=== PATIENT | female | born 1990 | race Caucasian/White ===

== ENCOUNTER 2020-12-12 03:03 | Inpatient (IN) | payer MEDICAID ==
[~2020-12-12] VITALS: Ht 154.9 cm; Wt 92.7 kg
[2020-12-12] MEDS ORDERED: LABETALOL 5MG/ML, 20ML IVPush ONE ×2 (03:30)
[2020-12-12] MEDS ORDERED: LABETALOL 20 MG/4 ML IVPush ONE (03:30)
[2020-12-12] MEDS ORDERED: hydrALAzine 20 MG/ML, 1ML IVPush ONE (03:30)
[2020-12-12] MEDS ORDERED: MAGNESIUM SULF. PMX 20GM/500ML 500 ML IV SCH (03:30)
[2020-12-12 03:34] LABS: MICROSCOPIC AUTO
[2020-12-12 03:38] LABS: AMPHETAMINE SCREEN, URINE Negative (Negative); BARBITURATE SCREEN, URINE Negative (Negative); BENZODIAZEPINE SCREEN, URINE Negative (Negative); CANNABINOID SCREEN, URINE Negative (Negative); COCAINE SCREEN, URINE Negative (Negative); METHADONE SCREEN, URINE Negative (Negative); OPIATE SCREEN, URINE Negative (Negative)
[2020-12-12 03:40] LABS: CREATININE,URINE RANDOM 15.2 mg/dL
[2020-12-12 03:47] LABS: MEAN CORPUSCULAR HEMOGLOBIN 32.8 pg (27.0-34.8); MEAN PLATELET VOLUME 9.4 fL (7.4-10.4); PLATELET COUNT 173 x10^3/uL (130-400); RED BLOOD COUNT 3.32 x10^6/uL (3.82-5.3); RED CELL DISTRIBUTION WIDTH 12.5 % (9.6-15.2)
[2020-12-12 03:50] LABS: ALANINE AMINOTRANSFERASE 32 U/L (12-78); ALBUMIN 2.6 g/dL (3.4-5.0); ANION GAP 10 mmol/L (5-15); CALCIUM 8.6 mg/dL (8.5-10.1); CHLORIDE 104 mmol/L (98-107); CREATININE 0.73 mg/dL (0.55-1.02)
[2020-12-12 03:52] LABS: ALKALINE PHOSPHATASE 89 U/L (45-117); BILIRUBIN,TOTAL 0.6 mg/dL (0.2-1.0); TOTAL PROTEIN 6.5 g/dL (6.4-8.2)
[2020-12-12] MEDS ORDERED: SODIUM CITRATE/CITRIC ACID 15 ML UDC ONE (04:08)
[2020-12-12] MEDS ORDERED: METOCLOPRAMIDE 5 MG/ML, 2ML ONE (04:08)
[2020-12-12 04:13] LABS: BAND#(MANUAL) 1.98 x10^3/uL; BANDS%(MANUAL) 13 % (0-7); LYMPH#(MANUAL) 1.67 x10^3/uL (1-3.4); LYMPHS% (MANUAL) 11 % (22-44); METAMYELOCYTES% (MANUAL) 2 % (0-1); MONOS% (MANUAL) 2 % (2-9); SEG#(MANUAL) 10.64 x10^3/uL (1.8-6.8); SEGS% (MANUAL) 70 % (42-75)
[2020-12-12 04:14] LABS: <PLATELET ESTIMATE> ADEQUATE; <RBC MORPHOLOGY> NORMAL; LARGE PLATELETS 1+; MYELOCYTES% (MANUAL) 2 % (0-0)
[2020-12-12 04:15] LABS: PMNS WITH VACUOLES 1+; TOXIC GRAN 1+
[2020-12-12] MEDS: LACTATED RINGERS 1,000 ML IV PRN (04:32)
[2020-12-12] MEDS ORDERED: LABETALOL 100 MG TABLET ONE (06:55)
[2020-12-12] MEDS: LABETALOL 100 MG TABLET PO SCH ×3 (06:58→21:09)
[2020-12-12] MEDS ORDERED: ACETAMINOPHEN 325 MG TABLET ONE (09:38)
[2020-12-12] MEDS: ACETAMINOPHEN 325 MG TABLET PO PRN ×2 (09:40→19:45)
[2020-12-12] MEDS: PRENATAL VIT/IRON/FA 1 EACH TABLET PO SCH (12:30)
[2020-12-12] MEDS: DOCUSATE 100 MG CAPSULE PO PRN ×2 (12:30→21:09)
[2020-12-12] MEDS ORDERED: MAGNESIUM SULF. PMX 20GM/500ML 500 ML IV ONE (17:29)
[2020-12-12] MEDS: MAGNESIUM SULF. PMX 20GM/500ML 500 ML IV SCH (22:14)
[2020-12-13] MEDS ORDERED: BETAMETHASONE 6 MG/ML, 5ML IM ONE (01:00)
[2020-12-13] MEDS: ACETAMINOPHEN 325 MG TABLET PO PRN ×3 (01:29→18:40)
[2020-12-13] MEDS: LACTATED RINGERS 1,000 ML IV PRN (03:37)
[2020-12-13] MEDS: LABETALOL 100 MG TABLET PO SCH ×3 (07:29→21:37)
[2020-12-13] MEDS ORDERED: INSULIN NPH HUMAN 100 UNIT/ML, 3ML VIAL SQ-INSULIN ONE (07:30)
[2020-12-13] MEDS ORDERED: INSULIN LISPRO 100 UNITS/ML, PEN SQ-INSULIN ONE (07:30)
[2020-12-13 09:49] LABS: BASOPHILS % (AUTO) 0 % (0-1); EOSINOPHILS % (AUTO) 0 % (1-7); LYMPHOCYTES % (AUTO) 10 % (22-44); MEAN CORPUSCULAR HEMOGLOBIN 33.8 pg (27.0-34.8); MEAN CORPUSCULAR HGB CONC 34.4 g/dL (32.4-35.8); MEAN PLATELET VOLUME 9.5 fL (7.4-10.4); MONOCYTES % (AUTO) 2 % (2-9); NEUTROPHILS % (AUTO) 89 % (42-75); PLATELET COUNT 151 x10^3/uL (130-400); RED BLOOD COUNT 2.89 x10^6/uL (3.82-5.3); RED CELL DISTRIBUTION WIDTH 13.2 % (9.6-15.2)
[2020-12-13 09:51] LABS: ALBUMIN 2.5 g/dL (3.4-5.0); ANION GAP 10 mmol/L (5-15); CALCIUM 6.9 mg/dL (8.5-10.1); CHLORIDE 103 mmol/L (98-107)
[2020-12-13 09:54] LABS: ALANINE AMINOTRANSFERASE 45 U/L (12-78); ALKALINE PHOSPHATASE 79 U/L (45-117); BILIRUBIN,TOTAL 0.7 mg/dL (0.2-1.0); CREATININE 1.12 mg/dL (0.55-1.02)
[2020-12-13] MEDS: PRENATAL VIT/IRON/FA 1 EACH TABLET PO SCH (10:03)
[2020-12-13] MEDS: DOCUSATE 100 MG CAPSULE PO PRN (10:03)
[2020-12-13 15:32] LABS: MEAN CORPUSCULAR HEMOGLOBIN 32.7 pg (27.0-34.8); MEAN PLATELET VOLUME 9.8 fL (7.4-10.4); PLATELET COUNT 161 x10^3/uL (130-400); RED BLOOD COUNT 3.11 x10^6/uL (3.82-5.3); RED CELL DISTRIBUTION WIDTH 13.5 % (9.6-15.2)
[2020-12-13 15:45] LABS: ALANINE AMINOTRANSFERASE 52 U/L (12-78); ALBUMIN 2.7 g/dL (3.4-5.0); ANION GAP 8 mmol/L (5-15); CHLORIDE 101 mmol/L (98-107); CREATININE 1.01 mg/dL (0.55-1.02)
[2020-12-13 15:47] LABS: ALKALINE PHOSPHATASE 82 U/L (45-117); BILIRUBIN,TOTAL 0.5 mg/dL (0.2-1.0); TOTAL PROTEIN 6.5 g/dL (6.4-8.2)
[2020-12-13 16:36] LABS: <PLATELET ESTIMATE> ADEQUATE; <RBC MORPHOLOGY> NORMAL; BANDS%(MANUAL) 10 % (0-7); LYMPH#(MANUAL) 1.21 x10^3/uL (1-3.4); LYMPHS% (MANUAL) 11 % (22-44); MONOS#(MANUAL) 0.55 x10^3/uL (0.3-2.7); MONOS% (MANUAL) 5 % (2-9); MYELOCYTES# (MANUAL) 0.11 x10^3/uL (0-0); MYELOCYTES% (MANUAL) 1 % (0-0); SEG#(MANUAL) 8.03 x10^3/uL (1.8-6.8); SEGS% (MANUAL) 73 % (42-75)
[2020-12-13 16:37] LABS: LARGE PLATELETS 1+
[2020-12-13] MEDS: MAGNESIUM SULF. PMX 20GM/500ML 500 ML IV SCH (18:01)
[2020-12-13] MEDS ORDERED: ONDANSETRON 2MG/ML, 2ML ONE (18:39)
[2020-12-13] MEDS ORDERED: ONDANSETRON 2MG/ML, 2ML IVPush PRN (19:00)
[2020-12-13 20:55] LABS: ALANINE AMINOTRANSFERASE 56 U/L (12-78); ALBUMIN 2.6 g/dL (3.4-5.0); ANION GAP 9 mmol/L (5-15); CHLORIDE 104 mmol/L (98-107); CREATININE 0.88 mg/dL (0.55-1.02)
[2020-12-13 20:58] LABS: ALKALINE PHOSPHATASE 80 U/L (45-117); BILIRUBIN,TOTAL 0.5 mg/dL (0.2-1.0); TOTAL PROTEIN 6.2 g/dL (6.4-8.2)
[2020-12-13] MEDS: SODIUM CHLORIDE FLUSH 3ML SYRINGE IVF SCH (21:00)
[2020-12-14 02:04] LABS: BASOPHILS % (AUTO) 0 % (0-1); EOSINOPHILS % (AUTO) 0 % (1-7); LYMPHOCYTES % (AUTO) 12 % (22-44); MEAN CORPUSCULAR HEMOGLOBIN 33.7 pg (27.0-34.8); MEAN CORPUSCULAR HGB CONC 34.5 g/dL (32.4-35.8); MEAN PLATELET VOLUME 9.4 fL (7.4-10.4); MONOCYTES % (AUTO) 7 % (2-9); NEUTROPHILS % (AUTO) 81 % (42-75); PLATELET COUNT 146 x10^3/uL (130-400); RED BLOOD COUNT 2.73 x10^6/uL (3.82-5.3); RED CELL DISTRIBUTION WIDTH 13.7 % (9.6-15.2)
[2020-12-14 02:18] LABS: ALBUMIN 2.5 g/dL (3.4-5.0); ANION GAP 7 mmol/L (5-15); CALCIUM 6.9 mg/dL (8.5-10.1); CHLORIDE 105 mmol/L (98-107); CREATININE 1.01 mg/dL (0.55-1.02)
[2020-12-14 02:21] LABS: ALANINE AMINOTRANSFERASE 62 U/L (12-78); ALKALINE PHOSPHATASE 74 U/L (45-117); BILIRUBIN,TOTAL 0.4 mg/dL (0.2-1.0); TOTAL PROTEIN 5.8 g/dL (6.4-8.2)
[2020-12-14] MEDS: LACTATED RINGERS 1,000 ML IV PRN (05:07)
[2020-12-14] MEDS: ACETAMINOPHEN 325 MG TABLET PO PRN (06:40)
[2020-12-14] MEDS: LABETALOL 100 MG TABLET PO SCH ×3 (06:40→21:54)
[2020-12-14] MEDS ORDERED: OXYcodone/APAP 5/325MG TABLET ONE (07:56)
[2020-12-14] MEDS: SODIUM CHLORIDE FLUSH 3ML SYRINGE IVF SCH ×2 (09:00→21:00)
[2020-12-14 09:05] VITALS: BP 136/74
[2020-12-14 13:21] LABS: BASOPHILS % (AUTO) 0 % (0-1); EOSINOPHILS % (AUTO) 0 % (1-7); LYMPHOCYTES % (AUTO) 11 % (22-44); MEAN CORPUSCULAR HEMOGLOBIN 32.9 pg (27.0-34.8); MEAN CORPUSCULAR HGB CONC 33.2 g/dL (32.4-35.8); MEAN PLATELET VOLUME 9.2 fL (7.4-10.4); MONOCYTES % (AUTO) 5 % (2-9); NEUTROPHILS % (AUTO) 84 % (42-75); PLATELET COUNT 153 x10^3/uL (130-400); RED CELL DISTRIBUTION WIDTH 13.5 % (9.6-15.2)
[2020-12-14 13:31] LABS: ALBUMIN 2.7 g/dL (3.4-5.0); ANION GAP 7 mmol/L (5-15); CHLORIDE 105 mmol/L (98-107)
[2020-12-14 14:00] LABS: ALANINE AMINOTRANSFERASE 74 U/L (12-78); ALKALINE PHOSPHATASE 83 U/L (45-117); BILIRUBIN,TOTAL 0.5 mg/dL (0.2-1.0); CREATININE 0.96 mg/dL (0.55-1.02); TOTAL PROTEIN 6.6 g/dL (6.4-8.2)
[2020-12-14] MEDS: MAGNESIUM SULF. PMX 20GM/500ML 500 ML IV SCH (14:39)
[2020-12-14] MEDS ORDERED: LACTATED RINGERS 1,000 ML IVBOLUS ONE (15:30)
[2020-12-14] MEDS ORDERED: SODIUM CITRATE/CITRIC ACID 15 ML UDC ONE (15:41)
[2020-12-14] MEDS ORDERED: METOCLOPRAMIDE 5 MG/ML, 2ML ONE (15:41)
[2020-12-14] MEDS ORDERED: METOCLOPRAMIDE 5 MG/ML, 2ML IV ONE (18:00)
[2020-12-14] MEDS ORDERED: SODIUM CITRATE/CITRIC ACID 30 ML UDC PO ONE (18:00)
[2020-12-14] MEDS ORDERED: morphine SULFATE/PF 0.5 MG/ML, 10ML ONE (18:16)
[2020-12-14] MEDS ORDERED: SODIUM CHLORIDE 0.9% PF 10ML ONE (18:18)
[2020-12-14] MEDS ORDERED: ONDANSETRON 2MG/ML, 2ML ONE (18:18)
[2020-12-14] MEDS ORDERED: OXYTOCIN 10 UNITS/ML, 1ML ONE (18:18)
[2020-12-14] MEDS ORDERED: DEXAMETHASONE 4 MG/ML, 1ML ONE (18:18)
[2020-12-14] MEDS ORDERED: CEFAZOLIN 1,000 MG ONE (18:18)
[2020-12-14] MEDS ORDERED: MIDAZOLAM 1 MG/ML, 2ML ONE (18:19)
[2020-12-14] MEDS: ONDANSETRON 2MG/ML, 2ML IV PRN (19:50)
[2020-12-14] MEDS ORDERED: LACTATED RINGERS 1,000 ML IV SCH ×2 (20:00)
[2020-12-14] MEDS ORDERED: MISOPROSTOL 200 MCG TABLET PO PRN (20:00)
[2020-12-14] MEDS ORDERED: OXYTOCIN 30U/ 0.9% NaCL 500ML 500 ML IV SCH (20:00)
[2020-12-14] MEDS ORDERED: BISACODYL 10 MG SUPP PR PRN (20:00)
[2020-12-14] MEDS ORDERED: OXYcodone 5 MG/5 ML ORAL.SOL UDC ONE (20:49)
[2020-12-14] MEDS ORDERED: FENTANYL PF 100 MCG/2ML ONE (20:49)
[2020-12-14] MEDS ORDERED: MIDAZOLAM 1 MG/ML, 2ML IV PRN (21:00)
[2020-12-14] MEDS ORDERED: METOCLOPRAMIDE 5 MG/ML, 2ML IVPush PRN (21:00)
[2020-12-14] MEDS ORDERED: OXYcodone 5 MG/5 ML ORAL.SOL UDC PO PRN (21:00)
[2020-12-14] MEDS ORDERED: FENTANYL PF 100 MCG/2ML IV PRN (21:00)
[2020-12-14] MEDS ORDERED: MEPERIDINE/PF 25MG/0.5ML IVPush PRN (21:00)
[2020-12-15] MEDS ORDERED: MISOPROSTOL 100 MCG TABLET PO ONE (00:30)
[2020-12-15] MEDS ORDERED: D5%-LACTATED RINGERS 1,000 ML IV SCH (00:30)
[2020-12-15] MEDS: OXYcodone IR 5MG TABLET PO PRN ×4 (01:56→21:10)
[2020-12-15 04:05] LABS: MEAN CORPUSCULAR HEMOGLOBIN 33.4 pg (27.0-34.8); MEAN CORPUSCULAR HGB CONC 33.8 g/dL (32.4-35.8); MEAN PLATELET VOLUME 9.7 fL (7.4-10.4); PLATELET COUNT 136 x10^3/uL (130-400); RED BLOOD COUNT 2.97 x10^6/uL (3.82-5.3); RED CELL DISTRIBUTION WIDTH 13.4 % (9.6-15.2)
[2020-12-15 04:11] LABS: ALANINE AMINOTRANSFERASE 86 U/L (12-78); ALBUMIN 2.4 g/dL (3.4-5.0); ANION GAP 5 mmol/L (5-15); CALCIUM 6.6 mg/dL (8.5-10.1); CHLORIDE 105 mmol/L (98-107); CREATININE 0.94 mg/dL (0.55-1.02)
[2020-12-15 04:13] LABS: ALKALINE PHOSPHATASE 79 U/L (45-117); BILIRUBIN,TOTAL 0.5 mg/dL (0.2-1.0); TOTAL PROTEIN 5.9 g/dL (6.4-8.2)
[2020-12-15 04:40] LABS: BAND#(MANUAL) 0.97 x10^3/uL; BANDS%(MANUAL) 6 % (0-7); LYMPH#(MANUAL) 0.81 x10^3/uL (1-3.4); LYMPHS% (MANUAL) 5 % (22-44); METAMYELOCYTES# (MANUAL) 0.16 x10^3/uL (0-0); METAMYELOCYTES% (MANUAL) 1 % (0-1); MONOS#(MANUAL) 0.81 x10^3/uL (0.3-2.7); MONOS% (MANUAL) 5 % (2-9); MYELOCYTES# (MANUAL) 0.65 x10^3/uL (0-0); MYELOCYTES% (MANUAL) 4 % (0-0); POLYCHROMASIA 1+; SEGS% (MANUAL) 79 % (42-75)
[2020-12-15 04:41] LABS: <PLATELET ESTIMATE> ADEQUATE; LARGE PLATELETS 1+
[2020-12-15 05:16] LABS: MICROSCOPIC INDICATED
[2020-12-15 05:23] LABS: CREATININE,URINE RANDOM 93.8 mg/dL
[2020-12-15] MEDS: LABETALOL 100 MG TABLET PO SCH ×3 (06:06→22:00)
[2020-12-15 07:40] VITALS: BP 132/69
[2020-12-15] MEDS: MAGNESIUM SULF. PMX 20GM/500ML 500 ML IV SCH (09:22)
[2020-12-15] MEDS ORDERED: FUROSEMIDE 20 MG/2 ML IV ONE (12:00)
[2020-12-15] MEDS: OXYcodone/APAP 5/325MG TABLET PO PRN ×2 (12:16→18:22)
[2020-12-15] MEDS: ACETAMINOPHEN 325 MG TABLET PO PRN (15:34)
[2020-12-15 17:37] LABS: ALANINE AMINOTRANSFERASE 91 U/L (12-78); ALBUMIN 2.5 g/dL (3.4-5.0); ANION GAP 6 mmol/L (5-15); CALCIUM 6.5 mg/dL (8.5-10.1); CHLORIDE 102 mmol/L (98-107); CREATININE 0.93 mg/dL (0.55-1.02)
[2020-12-15 17:40] LABS: ALKALINE PHOSPHATASE 82 U/L (45-117); BILIRUBIN,TOTAL 0.6 mg/dL (0.2-1.0); TOTAL PROTEIN 6.2 g/dL (6.4-8.2)
[2020-12-15] MEDS: ONDANSETRON 2MG/ML, 2ML IV PRN (21:10)
[2020-12-15] MEDS ORDERED: OMNIPAQUE 350 MG/ML, 75ML BOTTLE ONE (21:34)
[2020-12-16] MEDS ORDERED: D5%-LACTATED RINGERS 1,000 ML IV SCH (00:30)
[2020-12-16] MEDS: OXYcodone IR 5MG TABLET PO PRN ×4 (01:30→22:27)
[2020-12-16] MEDS ORDERED: FUROSEMIDE 20 MG/2 ML IV ONE (01:30)
[2020-12-16 03:50] LABS: ALANINE AMINOTRANSFERASE 98 U/L (12-78); ALBUMIN 2.6 g/dL (3.4-5.0); ANION GAP 4 mmol/L (5-15); CALCIUM 6.8 mg/dL (8.5-10.1); CHLORIDE 100 mmol/L (98-107); CREATININE 0.84 mg/dL (0.55-1.02)
[2020-12-16 03:52] LABS: ALKALINE PHOSPHATASE 90 U/L (45-117); BILIRUBIN,TOTAL 0.6 mg/dL (0.2-1.0); TOTAL PROTEIN 6.6 g/dL (6.4-8.2)
[2020-12-16] MEDS ORDERED: OXYcodone 5 MG/5 ML ORAL.SOL UDC ONE ×2 (06:10→09:28)
[2020-12-16] MEDS: LABETALOL 100 MG TABLET PO SCH ×3 (06:46→21:57)
[2020-12-16 07:15] VITALS: BP 169/87
[2020-12-16] MEDS: PRENATAL VIT/IRON/FA 1 EACH TABLET PO SCH ×2 (08:43→09:00)
[2020-12-16] MEDS: DOCUSATE 100 MG CAPSULE PO PRN ×2 (08:43→22:27)
[2020-12-16] MEDS: OXYcodone/APAP 5/325MG TABLET PO PRN ×2 (14:17→18:29)
[2020-12-16 18:00] VITALS: BP 132/67
[2020-12-16] MEDS: SIMETHICONE 80 MG CHEW TAB PO PRN (22:27)
[2020-12-17] VITALS: BP 107/59
[2020-12-17] MEDS ORDERED: D5%-LACTATED RINGERS 1,000 ML IV SCH (00:30)
[2020-12-17] MEDS: OXYcodone IR 5MG TABLET PO PRN ×5 (03:26→22:23)
[2020-12-17 04:00] VITALS: BP 136/72
[2020-12-17 05:49] LABS: MEAN CORPUSCULAR HEMOGLOBIN 33.6 pg (27.0-34.8); MEAN CORPUSCULAR HGB CONC 34.5 g/dL (32.4-35.8); PLATELET COUNT 129 x10^3/uL (130-400); RED BLOOD COUNT 2.75 x10^6/uL (3.82-5.3); RED CELL DISTRIBUTION WIDTH 13.3 % (9.6-15.2)
[2020-12-17 05:51] LABS: ALBUMIN 2.3 g/dL (3.4-5.0); ANION GAP 3 mmol/L (5-15); CALCIUM 7.3 mg/dL (8.5-10.1); CHLORIDE 104 mmol/L (98-107)
[2020-12-17 05:56] LABS: ALANINE AMINOTRANSFERASE 75 U/L (12-78); ALKALINE PHOSPHATASE 80 U/L (45-117); BILIRUBIN,TOTAL 0.6 mg/dL (0.2-1.0); CREATININE 0.67 mg/dL (0.55-1.02); TOTAL PROTEIN 5.7 g/dL (6.4-8.2)
[2020-12-17] MEDS: LABETALOL 100 MG TABLET PO SCH ×3 (06:03→22:21)
[2020-12-17 06:27] LABS: LYMPH#(MANUAL) 1.85 x10^3/uL (1-3.4); LYMPHS% (MANUAL) 18 % (22-44); MONOS#(MANUAL) 0.52 x10^3/uL (0.3-2.7); MONOS% (MANUAL) 5 % (2-9); SEG#(MANUAL) 7.93 x10^3/uL (1.8-6.8); SEGS% (MANUAL) 77 % (42-75)
[2020-12-17 06:29] LABS: <PLATELET ESTIMATE> DECREASED; <PLT MORPHOLOGY> NORMAL PLT MORPH; POLYCHROMASIA 1+
[2020-12-17 06:31] LABS: ANISOCYTOSIS 1+
[2020-12-17 08:00] VITALS: BP 116/61
[2020-12-17] MEDS: SIMETHICONE 80 MG CHEW TAB PO PRN (09:05)
[2020-12-17] MEDS: DOCUSATE 100 MG CAPSULE PO PRN ×2 (09:05→20:28)
[2020-12-17] MEDS: PRENATAL VIT/IRON/FA 1 EACH TABLET PO SCH (09:05)
[2020-12-17 14:10] VITALS: BP 117/60
[2020-12-17 19:45] VITALS: BP 147/86
[2020-12-17] MEDS ORDERED: FUROSEMIDE 20 MG/2 ML IV ONE (20:00)
[2020-12-17 22:20] VITALS: BP 158/80
[2020-12-18] VITALS (7 sets, daily range): BP systolic 139–167; BP diastolic 65–90
[2020-12-18] MEDS: OXYcodone IR 5MG TABLET PO PRN ×3 (03:20→16:09)
[2020-12-18] MEDS: LABETALOL 100 MG TABLET PO SCH ×3 (06:26→22:20)
[2020-12-18] MEDS: SIMETHICONE 80 MG CHEW TAB PO PRN ×2 (08:00→20:20)
[2020-12-18] MEDS: ACETAMINOPHEN 325 MG TABLET PO PRN ×2 (08:00→22:20)
[2020-12-18] MEDS: DOCUSATE 100 MG CAPSULE PO PRN ×2 (08:00→20:21)
[2020-12-18] MEDS: PRENATAL VIT/IRON/FA 1 EACH TABLET PO SCH (08:00)
[2020-12-18] MEDS: OXYcodone/APAP 5/325MG TABLET PO PRN (22:20)
[2020-12-19] MEDS: OXYcodone/APAP 5/325MG TABLET PO PRN ×4 (02:46→21:59)
[2020-12-19] MEDS: ACETAMINOPHEN 325 MG TABLET PO PRN ×2 (02:46→18:25)
[2020-12-19 03:00] VITALS: BP 154/73
[2020-12-19 05:29] LABS: BASOPHILS % (AUTO) 1 % (0-1); EOSINOPHILS % (AUTO) 2 % (1-7); LYMPHOCYTES % (AUTO) 25 % (22-44); MEAN CORPUSCULAR HGB CONC 33.8 g/dL (32.4-35.8); MEAN PLATELET VOLUME 8.5 fL (7.4-10.4); MONOCYTES % (AUTO) 8 % (2-9); NEUTROPHILS % (AUTO) 65 % (42-75); PLATELET COUNT 132 x10^3/uL (130-400); RED BLOOD COUNT 2.68 x10^6/uL (3.82-5.3); RED CELL DISTRIBUTION WIDTH 13.7 % (9.6-15.2)
[2020-12-19] MEDS: LABETALOL 100 MG TABLET PO SCH ×3 (05:32→21:59)
[2020-12-19 05:33] LABS: ALBUMIN 2.5 g/dL (3.4-5.0); ANION GAP 7 mmol/L (5-15); CALCIUM 8.8 mg/dL (8.5-10.1); CHLORIDE 106 mmol/L (98-107)
[2020-12-19 05:37] LABS: ALANINE AMINOTRANSFERASE 48 U/L (12-78); ALKALINE PHOSPHATASE 77 U/L (45-117); BILIRUBIN,TOTAL 0.6 mg/dL (0.2-1.0); TOTAL PROTEIN 5.8 g/dL (6.4-8.2)
[2020-12-19 07:38] VITALS: BP 155/85
[2020-12-19] MEDS: PRENATAL VIT/IRON/FA 1 EACH TABLET PO SCH (07:41)
[2020-12-19] MEDS: SIMETHICONE 80 MG CHEW TAB PO PRN ×2 (07:41→21:59)
[2020-12-19] MEDS: DOCUSATE 100 MG CAPSULE PO PRN ×2 (07:41→21:59)
[2020-12-19 14:05] VITALS: BP 134/71
[2020-12-19] MEDS: FERROUS GLUCONATE 324 MG TABLET PO SCH (19:00)
[2020-12-19 20:00] VITALS: BP 155/74
[2020-12-20 00:30] VITALS: BP 156/78
[2020-12-20] MEDS: ACETAMINOPHEN 325 MG TABLET PO PRN ×5 (00:34→20:20)
[2020-12-20 04:15] VITALS: BP 157/94
[2020-12-20] MEDS: LABETALOL 100 MG TABLET PO SCH ×2 (04:32→14:07)
[2020-12-20] MEDS: DOCUSATE 100 MG CAPSULE PO PRN (08:59)
[2020-12-20] MEDS: PRENATAL VIT/IRON/FA 1 EACH TABLET PO SCH (08:59)
[2020-12-20 09:02] VITALS: BP 131/77
[2020-12-20 14:08] VITALS: BP 145/81
[2020-12-20] MEDS ORDERED: IBUPROFEN 600 MG TABLET PO PRN (18:30)
[2020-12-20] MEDS: FERROUS GLUCONATE 324 MG TABLET PO SCH (18:39)
[2020-12-20 19:30] VITALS: BP 141/86
[2020-12-20] MEDS: OXYcodone/APAP 5/325MG TABLET PO PRN (22:17)
[2020-12-20] MEDS: LABETALOL 200 MG TABLET PO SCH (22:18)
[2020-12-21] VITALS (8 sets, daily range): BP systolic 128–174; BP diastolic 84–114
[2020-12-21] MEDS ORDERED: DIPHENHYDRAMINE 50 MG CAPSULE ONE (01:12)
[2020-12-21] MEDS ORDERED: DIPHENHYDRAMINE 50 MG CAPSULE PO ONE (01:30)
[2020-12-21] MEDS: OXYcodone/APAP 5/325MG TABLET PO PRN ×2 (03:43→08:20)
[2020-12-21 05:30] LABS: BASOPHILS % (AUTO) 1 % (0-1); EOSINOPHILS % (AUTO) 2 % (1-7); LYMPHOCYTES % (AUTO) 30 % (22-44); MEAN CORPUSCULAR HEMOGLOBIN 33.3 pg (27.0-34.8); MEAN CORPUSCULAR HGB CONC 34.5 g/dL (32.4-35.8); MEAN PLATELET VOLUME 8.8 fL (7.4-10.4); MONOCYTES % (AUTO) 8 % (2-9); NEUTROPHILS % (AUTO) 60 % (42-75); PLATELET COUNT 169 x10^3/uL (130-400); RED BLOOD COUNT 3.28 x10^6/uL (3.82-5.3); RED CELL DISTRIBUTION WIDTH 13.5 % (9.6-15.2)
[2020-12-21 05:42] LABS: ALANINE AMINOTRANSFERASE 43 U/L (12-78); ALBUMIN 3.3 g/dL (3.4-5.0); ANION GAP 8 mmol/L (5-15); CALCIUM 9.3 mg/dL (8.5-10.1); CHLORIDE 107 mmol/L (98-107); CREATININE 0.81 mg/dL (0.55-1.02)
[2020-12-21 05:44] LABS: ALKALINE PHOSPHATASE 84 U/L (45-117); BILIRUBIN,TOTAL 0.8 mg/dL (0.2-1.0); TOTAL PROTEIN 7.5 g/dL (6.4-8.2)
[2020-12-21] MEDS: PRENATAL VIT/IRON/FA 1 EACH TABLET PO SCH (08:20)
[2020-12-21] MEDS ORDERED: ONDANSETRON ODT 4 MG ONE (09:49)
[2020-12-21] MEDS: LABETALOL 200 MG TABLET PO SCH ×2 (09:53→22:00)
[2020-12-21] MEDS ORDERED: ONDANSETRON ODT 4 MG PO PRN (10:00)
[2020-12-21] MEDS: ACETAMINOPHEN 325 MG TABLET PO PRN ×2 (13:30→21:07)
[2020-12-21] MEDS: FERROUS GLUCONATE 324 MG TABLET PO SCH (17:00)
[2020-12-22 00:30] VITALS: BP 144/88
[2020-12-22 04:40] VITALS: BP 148/92
[2020-12-22] MEDS: PRENATAL VIT/IRON/FA 1 EACH TABLET PO SCH (09:13)
[2020-12-22] MEDS: LABETALOL 200 MG TABLET PO SCH (09:14)
[2020-12-22 09:15] VITALS: BP 134/66
[2020-12-22] MEDS: ACETAMINOPHEN 325 MG TABLET PO PRN (09:20)
[2020-12-22 10:52] LABS: ALANINE AMINOTRANSFERASE 39 U/L (12-78); ALBUMIN 3.3 g/dL (3.4-5.0); ANION GAP 4 mmol/L (5-15); CALCIUM 9.2 mg/dL (8.5-10.1); CHLORIDE 106 mmol/L (98-107); CREATININE 0.94 mg/dL (0.55-1.02)
[2020-12-22 10:54] LABS: ALKALINE PHOSPHATASE 79 U/L (45-117); BILIRUBIN,TOTAL 0.7 mg/dL (0.2-1.0); TOTAL PROTEIN 7.5 g/dL (6.4-8.2)
== END 2020-12-22 14:25 | disposition home or self-care (01) | DRG 540 ==
LOC: LDIP 03:03 → 2NE 12-14 19:32 → 2NW 12-16 17:37
PROVIDERS: ADMIT Obstetrics & Gynecology Maternal & Fetal Medicine; ATTEND Obstetrics & Gynecology Maternal & Fetal Medicine
PROC: 10D00Z1 Extraction of Products of Conception, Low, Open Approach (ICD-10-PCS; principal; 2020-12-14)
DX: O14.14 Severe pre-eclampsia complicating childbirth (principal); O24.429 Gestational diabetes mellitus in childbirth, unspecified control; Z20.822 Contact with and (suspected) exposure to COVID-19; O76 Abnormality in fetal heart rate and rhythm complicating labor and delivery; O90.81 Anemia of the puerperium; O32.1XX0 Maternal care for breech presentation, not applicable or unspecified; O36.5920 Maternal care for other known or suspected poor fetal growth, second trimester, not applicable or unspecified; Z37.0 Single live birth; Z3A.27 27 weeks gestation of pregnancy; Z86.14 Personal history of Methicillin resistant Staphylococcus aureus infection; Z87.09 Personal history of other diseases of the respiratory system; Z88.0 Allergy status to penicillin; Z88.1 Allergy status to other antibiotic agents; Z91.040 Latex allergy status; Z88.8 Allergy status to other drugs, medicaments and biological substances
CPT/HCPCS: 36415; 36600; 87106; J7121; 71045; 71275; 76819; 80053; 80307; 81001; 82570; 82803; 82962; 83615; 83735; 83880; 84156; 84550; 85025; 86592; 86850; 86900; 87086; 87635; 88307; 93005; 93306; G0378; J0690; J0702; J1100; J1815; J2250; J2274; J2405; J3010; Q0162; Q9967; J1940; J2590; J2765; J3475; J7120